=== PATIENT | female | born 1995 | race American Indian/Alaskan Native ===

== ENCOUNTER 2017-08-27 19:10 | Emergency (ER) | payer SELFPAY ==
[2017-08-27 19:52] VITALS: BP 139/89
[2017-08-27] MEDS ORDERED: NORCO 5/325 ONE (23:20)
[2017-08-27] MEDS ORDERED: NORCO 5/325 PO ONE (23:33)
--- NOTE | 2017-08-27 23:39 | Emergency Department Report ---
Abscess Boil [facility] Chief Complaint: Skin/Abscess/Foreign Body Stated Complaint: BOIL UNDER RIGHT ARM Time Seen by Provider: 08/27/17 23:35 Duration: 5 Days Location: Upper Extremity Severity: Moderate History: Yes Pain, Yes Purulent Drainage, No Fever, No Numbness, No Foreign Body , No Previous History, No Insect Bite Home Medications: Home Medications Medication Instructions Recorded Confirmed Last Taken metFORMIN [Glucophage] 850 mg PO BID 08/27/17 08/27/17 Unknown Previous Rx's Medication Instructions Recorded Last Taken Type Clindamycin [Clindamycin CAP] 300 mg PO QID #40 cap 08/27/17 Unknown Rx traMADol [Ultram] 50 mg PO Q8HR PRN #15 tablet 08/27/17 Unknown Rx Allergies/Adverse Reactions: Allergies Allergy/AdvReac Type Severity Reaction Status Date / Time No Known Allergies Allergy Verified 08/27/17 23:23 ED Review of Systems ROS: Stated complaint: BOIL UNDER RIGHT ARM Other details as noted in HPI Constitutional: denies: chills, fever Eyes: denies: eye pain, eye discharge, vision change ENT: denies: ear pain, throat pain Respiratory: denies: cough, shortness of breath, wheezing Cardiovascular: denies: chest pain, palpitations Endocrine: no symptoms reported Gastrointestinal: denies: abdominal pain, nausea, diarrhea Genitourinary: denies: urgency, dysuria, discharge Musculoskeletal: denies: back pain, joint swelling, arthralgia Skin: other (abscess right axillary ) Neurological: denies: headache, weakness, paresthesias Psychiatric: denies: anxiety, depression Hematological/Lymphatic: denies: easy bleeding, easy bruising ED Past Medical Hx - Past Medical History Hx Diabetes: Yes - Surgical History Past Surgical History?: No - Social History Smoking Status: Never Smoker Substance Use Type: None - Medications Home Medications: Home Medications Medication Instructions Recorded Confirmed Last Taken Type Clindamycin [Clindamycin CAP] 300 mg PO QID #40 cap 08/27/17 Unknown Rx metFORMIN [Glucophage] 850 mg PO BID 08/27/17 08/27/17 Unknown History traMADol [Ultram] 50 mg PO Q8HR PRN #15 tablet 08/27/17 Unknown Rx ED Abscess Boil Physical Exam - Exam General: Vital signs noted. No distress. Alert and acting appropriately. Size: 3 cm Exam: Yes Tenderness, Yes Fluctuance, Yes Surrounding Cellulites/Erythema, Yes Normal Neurologic Exam, Yes Normal Circulation, No Lymphangitis, No Crepitation , No Heart Murmur I & D Note - I & D Note I & D Note: right axillary abscess 3x2 cm anesthesia with 1% lidocaine 3cc, cleaned wtih betadine solution incision x 1 with 11 blade blunt disection with forceps, moderate purulent drainage, pt refused packing due to pain , sterile dressing applied, all bleeding controlled , stopped per patient request, pt will follow up with pcp in 2-3 days, return to ed if symptoms worsen. ED Course Vital Signs 08/27/17 19:48 Temperature 98.8 F Pulse Rate 111 H Respiratory 15 Rate Blood Pressure 139/89 O2 Sat by Pulse 99 Oximetry Critical care attestation.: If time is entered above; I have spent that time in minutes in the direct care of this critically ill patient, excluding procedure time. ED Medical Decision Making - Medical Decision Making right axillary abscess 2x3, I&D of same, pt refused packing, sterile dressing applied, pt will follow up with pcp in 2-3 days, will dc to home with clindamycin po , pt given strict wound care instructions , pt verbalized agreement and understanding of discharge plan. ED Disposition Clinical Impression: Abscess of axilla, right Disposition: DC-01 TO HOME OR SELFCARE Is pt being admited?: No Does the pt Need Aspirin: No Condition: Stable Instructions: Abscess (ED), Incision and Drainage (ED) Prescriptions: Clindamycin [Clindamycin CAP] 300 mg PO QID #40 cap traMADol [Ultram] 50 mg PO Q8HR PRN #15 tablet PRN Reason: Pain Referrals: [facility] [Outside] - 3-5 Days Forms: Work/School Release Form(ED) Time of Disposition: 23:46
== END 2017-08-28 00:04 | disposition home or self-care (01) ==
LOC: ED 19:10
DX: L02.411 Cutaneous abscess of right axilla (principal); E11.9 Type 2 diabetes mellitus without complications